=== PATIENT | female | born 1990 | race African-American/Black ===

== ENCOUNTER 2019-01-03 21:30 | Emergency (ER) | payer OTHER ==
[~2019-01-03] VITALS: Ht 160 cm; Wt 64.0 kg
[2019-01-03] MEDS ORDERED: MORPHINE SULFATE 10 MG/ML CPJ IM ONE (23:45)
[2019-01-03] MEDS ORDERED: KETOROLAC 60MG/2ML VIAL IM ONE (23:45)
[2019-01-03] MEDS ORDERED: ONDANSETRON 4MG ODT PO ONE (23:45)
[2019-01-04 00:28] LABS: HCG SCREEN NEGATIVE
[2019-01-04 02:15] VITALS: BP 97/55
== END 2019-01-04 02:48 | disposition home or self-care (01) ==
LOC: ER 21:30
DX: R51 Headache (principal); R11.10 Vomiting, unspecified
CPT/HCPCS: 70486; 81025; 84703; 96372; 99284; J1885; J2270; Q0162

== ENCOUNTER 2024-03-04 09:31 | Emergency (ER) | payer SELFPAY ==
[~2024-03-04] VITALS: Ht 157.5 cm; Wt 67.0 kg
[2024-03-04 09:36] VITALS: BP 110/73; PULSE 58; RESP 16; TEMP 98.5; O2SAT 99
[2024-03-04] MEDS ORDERED: DOCUSATE SODIUM 100MG CAPSULE PO ONE (10:15)
[2024-03-04 10:55] LABS: BASOPHILS % 0.6 % (0.0-2.0); EOSINOPHILS % 2.2 % (0.0-5.0); HEMATOCRIT. 40.4 % (36.0-48.0); HEMOGLOBIN. 13.8 g/dL (12.0-16.0); LYMPHOCYTES % 22.9 % (20.0-50.0); MEAN CORPUSCULAR HEMOGLOBIN 33.8 pg (28.0-32.0); MEAN CORPUSCULAR HGB CONC 34.1 g/dL (31.0-37.0); MEAN CORPUSCULAR VOLUME 99.1 fL (81.0-99.0); MEAN PLATELET VOLUME 8.3 fl (7.4-10.4); MONOCYTES % 6.9 % (2.0-8.0); NEUTROPHILS % 67.4 % (40.0-76.0); PLATELET 257 x1000/uL (130-400); RED BLOOD CELL COUNT 4.08 mill/uL (4.2-5.4); RED CELL DISTRIBUTION WIDTH 13.3 % (11.6-14.6); WHITE BLOOD COUNT 4.5 x1000/uL (4.5-11.0)
[2024-03-04 10:57] LABS: CLARITY URINE CLEAR (CLEAR); COLOR URINE YELLOW (YELLOW); GLUCOSE URINE NEGATIVE (NEGATIVE); KETONES URINE NEGATIVE (NEGATIVE); LEUKOCYTE ESTERASE URINE NEGATIVE (NEGATIVE); NITRITE URINE NEGATIVE (NEGATIVE); OCCULT BLOOD URINE NEGATIVE (NEGATIVE); PROTEIN URINE NEGATIVE (NEGATIVE); SPECIFIC GRAVITY URINE 1.009 (1.005-1.030); UROBILINOGEN URINE 0.2 E.U./dL (0.2-1.0)
[2024-03-04 11:09] LABS: HCG SCREEN NEGATIVE
[2024-03-04 11:17] LABS: CHLORIDE 105 mEq/L (98-107); SODIUM 138 mEq/L (136-145)
[2024-03-04 11:18] LABS: CARBON DIOXIDE 29 mEq/L (21-32)
[2024-03-04 11:19] LABS: CALCIUM 9.5 mg/dL (8.7-10.4)
[2024-03-04 11:23] LABS: CREATININE 0.8 mg/dL (0.6-1.0); GLUCOSE 94 mg/dL (70-105)
[2024-03-04 11:24] LABS: UREA NITROGEN BLOOD 6 mg/dL (9-23)
[2024-03-04 11:25] LABS: ALANINE AMINOTRANSFERASE 31 IU/L (10-49); ALBUMIN 4.2 g/dL (3.2-4.8); ASPARTATE AMINOTRANSFERASE 32 IU/L (<34)
[2024-03-04 11:26] LABS: BILIRUBIN DIRECT 0.1 mg/dL (<=3.0); BILIRUBIN TOTAL 0.4 mg/dL (0.1-1.0); PROTEIN TOTAL 7.9 g/dL (6.0-8.3)
[2024-03-04] MEDS: DOCUSATE SODIUM 100MG CAPSULE PO SCH (12:14)
[2024-03-04] MEDS: SORBITOL 70% SOLN 30ML PO PRN (12:14)
[2024-03-04] MEDS ORDERED: POLY17PO3 MT (12:16)
== END 2024-03-04 12:30 | disposition home or self-care (01) ==
LOC: ER 09:44
DX: K59.00 Constipation, unspecified (principal)
CPT/HCPCS: 36415; 74018; 80048; 80076; 81003; 84703; 85025; 99284